=== PATIENT | female | born 1980 | race African-American/Black ===

== ENCOUNTER 2018-12-07 15:13 | Emergency (ER) | payer OTHER ==
[~2018-12-07] VITALS: Ht 157.5 cm; Wt 68.1 kg
[~2018-12-07 15:13] MED LIST: ACET325T33 PO; BACL10TA PO; IBUP-1561 PO
[2018-12-07 15:19] VITALS: BP 121/62; PULSE 70; RESP 18; Ht 157.5 cm; Wt 68.1 kg
== END 2018-12-07 16:09 | disposition home or self-care (01) ==
LOC: FTE 15:13
DX: M54.2 Cervicalgia (principal)
CPT/HCPCS: 99283